=== PATIENT | male | born 1965 | race African-American/Black ===

== ENCOUNTER 2017-09-19 00:25 | Emergency (ER) | payer BC ==
[~2017-09-19] VITALS: Ht 170.2 cm; Wt 86.2 kg
[2017-09-19 00:35] VITALS: BP 122/72; Ht 170.2 cm; Wt 86.2 kg
== END 2017-09-19 04:05 | disposition left against medical advice (07) ==
LOC: ED 00:25
DX: Z53.21 Procedure and treatment not carried out due to patient leaving prior to being seen by health care provider (principal)